=== PATIENT | male | born 1960 | race Two or more races ===

== ENCOUNTER 2018-05-08 17:19 | Emergency (ER) | payer SELFPAY ==
[2018-05-08 17:23] VITALS: BP 161/98; PULSE 76; RESP 18; TEMP 97.9; O2SAT 100
--- NOTE | 2018-05-08 17:58 | ED PDOC ---
HPI: CCC, URI, Sore Throat Time Seen by Provider: 05/08/18 17:46 Chief Complaint (Nursing): ENT Problem Chief Complaint (Provider): Foreign Body (Throat) History Per: Patient History/Exam Limitations: no limitations Have you had recent travel within the past 21 days to any of the following countries: [place], [place], [place] or [place]?: No Onset/Duration Of Symptoms: Hrs (eight) Current Symptoms Are (Timing): Still Present Location Of Pain: Throat (Pt presents to the ED with complaints of a foreign body lodged in his throat (a piece of ham) that has been there since early this morning. Pt has not attempted to swallow water or eat food since the episode at home. Visualization of his throat shows no foreign body, however, the location is significantly lower accord the patient's subjective complaint. Pt is in no respiratory distress and is talking without difficulty as well as swallowing his own secretions. ) Severity: Mild Past Medical History Reviewed: Historical Data, Nursing Documentation, Vital Signs Vital Signs: Last Vital Signs Temp 97.9 F 05/08/18 17:22 Pulse 76 05/08/18 17:22 Resp 18 05/08/18 17:22 BP 161/98 H 05/08/18 17:22 Pulse Ox 100 05/08/18 17:22 - Family History Family History: States: Unknown Family Hx - Allergies Allergies/Adverse Reactions: Allergies Allergy/AdvReac Type Severity Reaction Status Date / Time No Known Allergies Allergy Verified 05/08/18 17:22 Review of Systems ROS Statement: Except As Marked, All Systems Reviewed And Found Negative Constitutional: Negative for: Fever, Chills, Sweats Eyes: Negative for: Pain ENT: Negative for: Ear Pain Cardiovascular: Negative for: Chest Pain Respiratory: Negative for: Cough, Shortness of Breath, SOB with Exertion, Pleuritic Pain, Wheezing Gastrointestinal: Positive for: Other (sense of fb in throat) Physical Exam - Reviewed Nursing Documentation Reviewed: Yes Vital Signs Reviewed: Yes - Physical Exam Appears: Positive for: Well, Non-toxic, No Acute Distress Head Exam: Positive for: ATRAUMATIC, NORMAL INSPECTION Skin: Positive for: Normal Color, Warm, Dry Eye Exam: Positive for: Normal appearance ENT: Positive for: Normal ENT Inspection, Pharynx Is (clear of any visual foreign body; otherwise good dentition, non-erythemic and without lesion or exudate) Neck: Positive for: Normal, Painless ROM, Supple. Negative for: Decreased ROM Cardiovascular/Chest: Positive for: Regular Rate, Rhythm, Chest Non Tender. Negative for: Edema, Gallop, Murmur, Bradycardia, Tachycardia Respiratory: Positive for: Normal Breath Sounds. Negative for: Decreased Breath Sounds, Accessory Muscle Use, Crackles, Rales, Rhonchi, Stridor, Wheezing Pulses-Carotid (L): 2+ Pulses-Carotid (R): 2+ Pulses-Radial (L): 2+ Pulses-Radial (R): 2+ Gastrointestinal/Abdominal: Positive for: Normal Exam, Soft. Negative for: Tenderness Neurologic/Psych: Positive for: Alert, Oriented. Negative for: Facial Droop - ECG O2 Sat by Pulse Oximetry: 100 Medical Decision Making Medical Decision Making: plan formulated and discussed with patient: PO challenge with water and then applesauce; if unable, CT or plain film xray; re-evaluate PT quickly exited the ED several minutes after discussing this plan with him and the attending nurse as well as the attending ED physician Left without treatment complete Disposition - Clinical Impression Clinical Impression: Throat pain - Disposition Disposition: Left W/O Treatment Disposition Time: 17:58 Condition: STABLE Forms: [employer] ([place])
== END 2018-05-08 18:03 | disposition left against medical advice (07) ==
LOC: H.ER 17:19
DX: J02.9 Acute pharyngitis, unspecified (principal)